=== PATIENT | female | born 1985 ===

== ENCOUNTER 2021-04-22 19:17 | Inpatient (IN) | payer OTHER ==
[2021-04-22] MEDS ORDERED: Dexamethasone 10 MG/ML VIAL ONE (19:57)
[2021-04-22 20:02] LABS: Hemoglobin 10.1 g/dL (12.0-15.5); Mean Corpuscular HGB CONC 29.5 g/dL (32.0-36.0); Mean Corpuscular Hemoglobin 24.8 pg (27.0-33.0); Mean Corpuscular Volume 83.8 fl (81.6-98.3); Mean Platelet Volume 9.7 fl (7.4-10.4); Platelet Count 312 10x3/uL (150-450); RBC Distribution Width 16.4 % (11.5-14.5); Red Blood Cell (RBC) Count 4.08 10x6/uL (3.90-5.03)
[2021-04-22] MEDS ORDERED: Ketorolac Tromethamine 30 MG/ML VIAL ONE (20:11)
[2021-04-22 20:20] LABS: AST (SGOT) 56 U/L (5-34); Anion Gap 15 mmol/L (10-20); Bilirubin, Total 0.3 mg/dL (0.2-1.2); Calcium 8.6 mg/dL (7.8-10.44); Carbon Dioxide 24 mmol/L (22-29); Chloride 103 mmol/L (98-107); Potassium 3.4 mmol/L (3.5-5.1); Protein, Total 7.1 g/dL (6.0-8.3); Sodium 139 mmol/L (136-145)
[2021-04-22 20:26] LABS: Bilirubin Neg (Negative); Blood, Urine 10 (Negative); Clarity Clear (Clear); Glucose, Urine (Dipstick) Normal (Negative); Ketone, Urine Negative (Negative); Leukocyte Negative (Negative); Nitrite Negative (Negative); Protein, Urine (Dipstick) 30 mg/dl (Neg-Trace); Specific Gravity, Urine 1.015 (1.002-1.036)
[2021-04-22 20:31] LABS: MDiff Complete? YES
[2021-04-22 20:33] LABS: ALT (SGPT) 33 U/L (8-55); Albumin 3.9 g/dL (3.5-5.0); Alkaline Phosphatase 77 U/L (40-110); BUN (Urea Nitrogen) 9 mg/dL (7.0-18.7); Calc. Creatinine Clearance 0 mL/min (70-130); Glucose 135 mg/dL (70-105)
[2021-04-22 20:36] LABS: Band 6 % (5-11); Hypochromia SLIGHT = 6-15 cells (100X) (0-5/hpf); Lymphocytes 28 % (21-51); Monocytes 10 % (0-10); Neutrophil 55 % (42-75); Reactive Lymphocytes 1 % (0-10)
[2021-04-22 20:38] LABS: Bacteria/HPF 2+ HPF (None Seen); Mucous/LPF 3+ LPF (<2+); RBC/HPF 0-3 HPF (0-3)
[2021-04-22] MEDS ORDERED: Enoxaparin Sodium 100 MG/ML SYRINGE ONE (22:54)
[2021-04-23] MEDS ORDERED: Guaifenesin DM 100-10/5 ML UDCUP PO PRN (00:30)
[2021-04-23] MEDS ORDERED: Ondansetron PF 4 MG/2 ML Vial IVP PRN (00:30)
[2021-04-23] MEDS ORDERED: Acetaminophen 325 MG TAB PO PRN (00:30)
[2021-04-23] MEDS ORDERED: HumaLOG 300 UNITS/3 ML VIAL SC PRN (00:30)
[2021-04-23] MEDS ORDERED: HYDROcodone/Acetaminophen 5/325 mg Tablet PO PRN ×2 (00:30)
[2021-04-23] MEDS ORDERED: Dextrose 50% Abboject 50 ML SYRINGE SLOW IVP PRN (00:30)
[2021-04-23] MEDS ORDERED: Dextrose 5% in Water 1,000 ML IV PRN (00:30)
[2021-04-23] MEDS ORDERED: Calcium Carbonate 500 MG ChewTAB PO PRN (00:30)
[2021-04-23] MEDS ORDERED: Zolpidem Tartrate 5 MG TAB PO PRN (00:30)
[2021-04-23] MEDS ORDERED: Ventolin HFA Inhaler 60 PUFF INHALER INH PRN (00:35)
[2021-04-23] MEDS ORDERED: Potassium Chloride 20 MEQ TAB PO SCH (01:00)
[2021-04-23 04:18] LABS: Hemoglobin 9.9 g/dL (12.0-15.5); Mean Corpuscular HGB CONC 30.6 g/dL (32.0-36.0); Mean Corpuscular Hemoglobin 25.3 pg (27.0-33.0); Mean Corpuscular Volume 82.9 fl (81.6-98.3); Platelet Count 300 10x3/uL (150-450); RBC Distribution Width 16.4 % (11.5-14.5); Red Blood Cell (RBC) Count 3.91 10x6/uL (3.90-5.03)
[2021-04-23 04:21] LABS: ALT (SGPT) 28 U/L (8-55); AST (SGOT) 46 U/L (5-34); Albumin 3.6 g/dL (3.5-5.0); Alkaline Phosphatase 70 U/L (40-110); Anion Gap 14 mmol/L (10-20); BUN (Urea Nitrogen) 9 mg/dL (7.0-18.7); Bilirubin, Total 0.3 mg/dL (0.2-1.2); Calc. Creatinine Clearance 0 mL/min (70-130); Calcium 8.4 mg/dL (7.8-10.44); Carbon Dioxide 24 mmol/L (22-29); Chloride 104 mmol/L (98-107); Globulin 3.4 g/dL (2.4-3.5); Glucose 165 mg/dL (70-105); Potassium 3.6 mmol/L (3.5-5.1); Sodium 138 mmol/L (136-145)
[2021-04-23 04:32] LABS: MDiff Complete? YES
[2021-04-23 04:38] LABS: Band 4 % (5-11); Lymphocytes 21 % (21-51); Monocytes 4 % (0-10); Myelocyte 1 % (0-0); Neutrophil 70 % (42-75); Nucleated RBC 2 % (0)
[2021-04-23] MEDS ORDERED: Potassium Chloride 20 MEQ TAB ONE (06:10)
[2021-04-23] MEDS ORDERED: Dexamethasone 10 MG/ML VIAL ONE (07:11)
[2021-04-23] MEDS ORDERED: Enoxaparin Sodium 100 MG/ML SYRINGE ONE (07:11)
[2021-04-23] MEDS: Ascorbic Acid 500 mg Chewable Tablet PO SCH (08:16)
[2021-04-23] MEDS: Enoxaparin Sodium 100 MG/ML SYRINGE SC SCH ×2 (08:16→20:40)
[2021-04-23] MEDS: Cholecalciferol 1,000 UNITS (25 MCG) TAB PO SCH (08:16)
[2021-04-23] MEDS: Dexamethasone 4 mg/ml Vial SLOW IVP SCH (08:16)
[2021-04-23] MEDS: Nicotine 21 MG PATCH TD SCH (08:17)
[2021-04-23] MEDS: Zinc Gluconate 50 MG TAB PO SCH (08:17)
[2021-04-23 11:12] LABS: Hemoglobin A1c 5.9 % (4.0-6.0)
[2021-04-23 20:06] VITALS: BMI 41.0
[2021-04-24 06:21] LABS: Hemoglobin 9.8 g/dL (12.0-15.5); Mean Corpuscular HGB CONC 30.2 g/dL (32.0-36.0); Mean Corpuscular Hemoglobin 25.2 pg (27.0-33.0); Mean Corpuscular Volume 83.5 fl (81.6-98.3); Mean Platelet Volume 9.9 fl (7.4-10.4); Platelet Count 362 10x3/uL (150-450); RBC Distribution Width 16.3 % (11.5-14.5); Red Blood Cell (RBC) Count 3.89 10x6/uL (3.90-5.03); White Blood Cell (WBC) Count 7.5 10x3/uL (3.5-10.5)
[2021-04-24 06:32] LABS: Anion Gap 13 mmol/L (10-20); BUN (Urea Nitrogen) 8 mg/dL (7.0-18.7); Calc. Creatinine Clearance 190 mL/min (70-130); Calcium 9.1 mg/dL (7.8-10.44); Carbon Dioxide 25 mmol/L (22-29); Chloride 106 mmol/L (98-107); Glucose 128 mg/dL (70-105); Potassium 3.5 mmol/L (3.5-5.1); Sodium 140 mmol/L (136-145)
[2021-04-24 07:11] LABS: MDiff Complete? YES
[2021-04-24 08:18] LABS: Band 2 % (5-11); Lymphocytes 15 % (21-51); Monocytes 3 % (0-10); Neutrophil 80 % (42-75)
[2021-04-24 08:20] LABS: Platelet Morphology Comment Appears Adequate
[2021-04-24] MEDS: Ascorbic Acid 500 mg Chewable Tablet PO SCH (09:06)
[2021-04-24] MEDS: Enoxaparin Sodium 100 MG/ML SYRINGE SC SCH ×2 (09:07→20:09)
[2021-04-24] MEDS: Nicotine 21 MG PATCH TD SCH (09:07)
[2021-04-24] MEDS: Zinc Gluconate 50 MG TAB PO SCH (09:07)
[2021-04-24] MEDS: Cholecalciferol 1,000 UNITS (25 MCG) TAB PO SCH (09:07)
[2021-04-24] MEDS: Dexamethasone 4 mg/ml Vial SLOW IVP SCH (09:07)
[2021-04-25 07:28] LABS: Hemoglobin 9.3 g/dL (12.0-15.5); Mean Corpuscular HGB CONC 29.6 g/dL (32.0-36.0); Mean Corpuscular Hemoglobin 25.1 pg (27.0-33.0); Mean Corpuscular Volume 84.9 fl (81.6-98.3); Mean Platelet Volume 10.2 fl (7.4-10.4); Platelet Count 375 10x3/uL (150-450); RBC Distribution Width 16.5 % (11.5-14.5); White Blood Cell (WBC) Count 5.5 10x3/uL (3.5-10.5)
[2021-04-25 07:38] LABS: Anion Gap 15 mmol/L (10-20); BUN (Urea Nitrogen) 11 mg/dL (7.0-18.7); Calc. Creatinine Clearance 196 mL/min (70-130); Calcium 8.9 mg/dL (7.8-10.44); Carbon Dioxide 22 mmol/L (22-29); Chloride 108 mmol/L (98-107); Glucose 109 mg/dL (70-105); Potassium 3.4 mmol/L (3.5-5.1); Sodium 142 mmol/L (136-145)
[2021-04-25] MEDS: Nicotine 21 MG PATCH TD SCH (08:35)
[2021-04-25] MEDS: Enoxaparin Sodium 100 MG/ML SYRINGE SC SCH (08:35)
[2021-04-25] MEDS: Zinc Gluconate 50 MG TAB PO SCH (08:36)
[2021-04-25] MEDS: Ascorbic Acid 500 mg Chewable Tablet PO SCH (08:36)
[2021-04-25] MEDS: Dexamethasone 4 mg/ml Vial SLOW IVP SCH (08:36)
[2021-04-25 08:39] LABS: MDiff Complete? YES
[2021-04-25 08:43] LABS: Band 1 % (5-11); Monocytes 8 % (0-10); Reactive Lymphocytes 2 % (0-10)
[2021-04-25 08:44] LABS: Lymphocytes 20 % (21-51); Neutrophil 69 % (42-75)
[2021-04-25] MEDS ORDERED: Potassium Chloride 20 MEQ TAB PO SCH (08:45)
[2021-04-25 08:47] LABS: Hypochromia SLIGHT = 6-15 cells (100X) (0-5/hpf); Ovalocytes SLIGHT = 2-5 cells (100X) (0-1/hpf); Platelet Morphology Comment Appears Adequate
[2021-04-25 09:49] VITALS: BP 126/73; TEMP 97.6
== END 2021-04-25 13:34 | disposition home or self-care (01) | DRG 177 ==
LOC: CSHERS 19:17 → CSHERHOLD 04-23 00:39 → CSHTELE 04-23 17:33
PROVIDERS: ADMIT Student in an Organized Health Care Education/Training Program; ATTEND Physician Assistant Medical
PROC: 8E0ZXY6 Isolation (ICD-10-PCS; principal; 2021-04-23)
DX: U07.1 COVID-19 (principal); J12.82 Pneumonia due to coronavirus disease 2019; J96.01 Acute respiratory failure with hypoxia; I26.99 Other pulmonary embolism without acute cor pulmonale; Z68.41 Body mass index [BMI] 40.0-44.9, adult; E87.6 Hypokalemia; F17.210 Nicotine dependence, cigarettes, uncomplicated; D64.9 Anemia, unspecified; E66.01 Morbid (severe) obesity due to excess calories; E11.65 Type 2 diabetes mellitus with hyperglycemia; Z83.3 Family history of diabetes mellitus
CPT/HCPCS: 36415; 36416; 71045; 71275; 80048; 80053; 81003; 81015; 83036; 83880; 84484; 85025; 85379; 86140; 93005; 93970; 94760; 96372; 96374; 96375; J1100; J1650; J1885